=== PATIENT | female | born 1975 | race Caucasian/White ===

== ENCOUNTER 2016-10-02 05:13 | Day surgery (SDC) | payer OTHER ==
[2016-09-28 14:43] VITALS: BMI 25.7
[2016-10-02] MEDS ORDERED: MIDAZOLAM HCL 2 MG/2 ML SINGLE DOSE VIAL ONE (12:16)
[2016-10-02] MEDS ORDERED: oxyCODONE HCL 5 MG TABLET PO PRN ×2 (12:32→14:36)
[2016-10-02] MEDS ORDERED: ONDANSETRON 4 MG/2 ML VIAL IVPUSH PRN (12:32)
[2016-10-02] MEDS ORDERED: PROMETHAZINE HCL 25 MG/1 ML VIAL IVPUSH PRN (12:32)
[2016-10-02] MEDS ORDERED: LACTATED RINGERS SOLUTION 1,000 ML IV SCH (12:45)
[2016-10-02] MEDS ORDERED: PROPOFOL 20 ML ONE (12:51)
[2016-10-02] MEDS ORDERED: KETOROLAC TROMETHAMINE 30 MG/1 ML VIAL ONE (13:09)
[2016-10-02] MEDS ORDERED: LIDOCAINE HCL/PF 2% SDV 5ML VIAL ONE (13:09)
[2016-10-02] MEDS ORDERED: DEXAMETHASONE SOD PHOSPHATE 4 MG/1 ML VIAL ONE (13:09)
[2016-10-02] MEDS ORDERED: SILVER NITRATE 75% APPLIC STCK 1 PKT EACH TP ONE (13:40)
--- NOTE | 2016-10-02 14:35 | OP ---
Operative Note - Note: Operative Date: 10/02/16 Pre-Operative Diagnosis: 41 yo with Metrorrhagia Operation: Hysteroscopy, Dialation, Curettage, Endometrial ablation Findings: Polypoid endometrial tissue Post-Operative Diagnosis: Same as Pre-op (and endometrial polyp) Surgeon: Megan Cabrales Anesthesiologist/CARPENTERS: Darlene Tinajero MD Anesthesia: MAC Specimens Removed: Endometrial curettings Estimated Blood Loss (mls): 0 Drains, Volume Out (mls): 200 Fluid Volume Replaced (mls): 700 Operative Report Dictated: Yes
--- NOTE | 2016-10-02 14:35 | HP ---
History & Physical Update - History History: No Change - Physical Physical: No Change - Assessment Assessment: No Change - Plan Plan: No Change
[2016-10-02] MEDS ORDERED: ONDANSETRON 4 MG/2 ML VIAL IVPB PRN (14:36)
[2016-10-02] MEDS ORDERED: IBUPROFEN 800 MG/8 ML IJ IVPB PRN (14:36)
[2016-10-02] MEDS ORDERED: IBUPROFEN 600 MG TABLET (FP) PO PRN (14:36)
[2016-10-02] MEDS ORDERED: ELECTROLYTE-148 SOLN 1,000 ML IV SCH (14:45)
[2016-10-02 14:49] VITALS: TEMP 98.2
[2016-10-02] MEDS ORDERED: oxyCODONE HCL 5 MG TABLET ONE (15:01)
[2016-10-02] MEDS ORDERED: KETOROLAC TROMETHAMINE 30 MG/1 ML VIAL IVPUSH ONE (16:14)
[2016-10-02] MEDS ORDERED: ONDANSETRON 4 MG/2 ML VIAL ONE (16:16)
[2016-10-02 17:59] VITALS: BP 133/76; PULSE 70
--- NOTE | 2016-10-03 00:10 | OP ---
DATE OF OPERATION: 10/02/2016 PREOPERATIVE DIAGNOSIS: A 41-year-old with metrorrhagia. OPERATION: Hysteroscopy, dilation and curettage, and endometrial ablation. FINDINGS: Polypoid endometrial tissue. POSTOPERATIVE DIAGNOSIS: A 41-year-old with metrorrhagia. Findings of endometrial polyp. SURGEON: Megan Cabrales M.D. ANESTHESIOLOGIST: Darlene Tinajero M.D. ANESTHESIA: MAC SPECIMENS: Removed: Endometrial curettings. DESCRIPTION OF OPERATIVE PROCEDURE: After insuring informed consent, patient is brought to the operating room where she was identified, and a timeout was called. She was placed in dorsal lithotomy position and after insuring adequate anesthesia, the Strange speculum was placed in the vagina. Cervix was identified and anterior lip of the cervix was articulated with single tooth tenaculum. Prat dilators were used to gradually dilate the cervical canal up to the gauge 17 to accommodate a 5-mm diagnostic scope. The overgrown posterior endometrial wall was identified. Polyp forceps and sharp curet were used in all 4 quadrants to denude endometrial lining to the basal layer. Subsequently the hydrothermal ablation device was placed into the uterus and a full 10-minute cycle was completed with temperature holding up to 91 degrees Celsius. The 2-minute cooling cycle performed. The endometrial lining was identified to be the grayish nakul out color, so successful endometrial cycle was completed. All instruments were removed from the cervix, uterus, and vagina. Excellent hemostasis was noted. Estimated blood loss was 0 mL. Urine output was 200 mL. Patient received 700 mL of fluid. All instruments and sponge counts were correct x2. Patient was placed back into supine position and brought to the recovery room in stable condition. Maksim SALINAS/[id number] MTDD
--- NOTE | 2016-10-10 11:19 | PATH ---
Surgical Pathology Report Patient Name: CASSIDY QUAN [facility]. Rec. #: [id number] /Age/Gender: 1975 (Age: 41) / F Account: [id number] Location: [facility] Taken: 10/02/2016 Received: 10/03/2016 Reported: 10/04/2016 Physicians: Megan Cabrales M.D. Specimen(s) Received ENDOMETRIAL CURETTINGS & POSSIBLE POLYPS Clinical History Abnormal vaginal bleeding Final Diagnosis ENDOMETRIUM AND POSSIBLE POLYPS, CURETTAGE: FRAGMENTS OF PREDOMINANTLY SECRETORY ENDOMETRIUM WITH AREAS SUGGESTIVE OF ENDOMETRIAL POLYP. FRAGMENTS OF BENIGN SMOOTH MUSCLE. Electronically Signed Yousif Brand M.D. Gross Description Received in formalin labeled "endometrial curettings and possible polyps" is a 3.6 x 2.4 x 0.3 cm aggregate of lorenzo soft tissue fragments. The formalin is filtered and the specimen is entirely submitted in 2 cassettes. /10/03/2016 saudi/10/03/2016
== END 2016-10-02 17:59 | disposition home or self-care (01) ==
LOC: JASU-SURG 05:13
PROVIDERS: ATTEND Obstetrics & Gynecology
PROC: 0U5B8ZZ Destruction of Endometrium, Via Natural or Artificial Opening Endoscopic (ICD-10-PCS; principal; 2016-10-02 12:00)
PROC: 0UDB8ZX Extraction of Endometrium, Via Natural or Artificial Opening Endoscopic, Diagnostic (ICD-10-PCS; 2016-10-02 12:00)
DX: N92.1 Excessive and frequent menstruation with irregular cycle (principal); N84.0 Polyp of corpus uteri
CPT/HCPCS: 88305-TC; 94760